=== PATIENT | male | born 1965 | race Caucasian/White ===

== ENCOUNTER 2016-07-26 13:06 | Emergency (ER) | payer OTHER ==
[~2016-07-26] VITALS: Ht 180.3 cm; Wt 78.1 kg
[~2016-07-26 13:06] MED LIST: FLUT1DIS; MONT4TAB5; SIMV40TA3 PO; SINGULAIR
[2016-07-26 13:11] VITALS: BP 144/95
[2016-07-26] MEDS ORDERED: ALBUTEROL/IPRATROPIUM 2.5MG/0.5MG, 3 ML NPPB ONE (13:30)
[2016-07-26] MEDS ORDERED: ALBUTEROL/IPRATROPIUM 2.5MG/0.5MG, 3 ML ONE (13:39)
== END 2016-07-26 17:11 | disposition home or self-care (01) ==
LOC: ED 16:35
DX: J02.9 Acute pharyngitis, unspecified (principal); J45.909 Unspecified asthma, uncomplicated
CPT/HCPCS: 36415; 71010; 86308; 93005; 94640; 99285; J7620

== ENCOUNTER 2016-08-02 10:06 | Emergency (ER) | payer OTHER ==
[~2016-08-02] VITALS: Ht 180.3 cm; Wt 77.7 kg
[2016-08-02 10:09] VITALS: BP_DIAS 85
[2016-08-02] MEDS ORDERED: LIDOCAINE 1%, 20ML ONE (10:36)
[2016-08-02] MEDS ORDERED: DIPH,PERTUSS(ACELL),TET VAC/PF 0.5 ML IM-VACC ONE ×2 (10:37→11:00)
[2016-08-02] MEDS ORDERED: ONDANSETRON ODT 4 MG ONE (10:47)
[2016-08-02] MEDS ORDERED: ONDANSETRON ODT 4 MG PO ONE (11:00)
[2016-08-02] MEDS ORDERED: LIDOCAINE 1%, 20ML SQ ONE (11:00)
[2016-08-02 11:07] VITALS: BP_SYST 137
== END 2016-08-02 11:09 | disposition home or self-care (01) ==
LOC: ED 10:54
DX: S01.81XA Laceration without foreign body of other part of head, initial encounter (principal); X58.XXXA Exposure to other specified factors, initial encounter; Y93.89 Activity, other specified; Y99.8 Other external cause status; Y92.009 Unspecified place in unspecified non-institutional (private) residence as the place of occurrence of the external cause
CPT/HCPCS: 12011; 90471; 90715; 99283; Q0162